=== PATIENT | female | born 1965 | race Caucasian/White ===

== ENCOUNTER 2020-05-18 14:26 | Outpatient (REF) | payer BC, SELFPAY ==
--- NOTE | 2020-05-18 14:34 | MM_ITS ---
EXAMINATION: MM SCREENING DIGITAL BREAST TOMOSYNTHESIS, BILATERAL CLINICAL INFORMATION: Screening. Asymptomatic. The lifetime risk of breast cancer based on the Tyrer-Cuzick Model is 9%. COMPARISON: Mammography: 02/25/2019, 10/30/2017, 10/10/2016 TECHNIQUE: Digital mammography is performed in craniocaudal and mediolateral oblique views along with computer-aided detection (CAD). Digital breast tomosynthesis is performed in implant-displaced craniocaudal and implant-displaced mediolateral oblique views along with computer-aided detection (CAD). Synthesized 2D images are generated from the tomosynthesis. FINDINGS: The breasts are heterogeneously dense, which may obscure small masses (ACR BI-RADS breast composition Category c). There are no significant masses, abnormal calcifications, or other abnormalities. Implant contours are smooth and similar to prior studies. There are no significant changes. No developing density. MM/MM tomosynthesis screen imp BI IMPRESSION: No mammographic evidence of malignancy. ASSESSMENT: BI-RADS 1: Negative RECOMMENDATION: Routine annual mammography screening. This patient's information was entered into a reminder system with a target due date for their next mammogram.
== END 2020-05-18 14:27 | disposition home or self-care (01) ==
LOC: HO.MAMMO 14:26
PROVIDERS: Visit Provider Family Medicine
DX: Z12.31 Encounter for screening mammogram for malignant neoplasm of breast (principal)
CPT/HCPCS: 77063; 77067

== ENCOUNTER 2021-08-23 13:10 | Outpatient (REF) | payer BC, SELFPAY ==
--- NOTE | ~2021-08-23 | MM_ITS ---
EXAMINATION: MM SCREENING DIGITAL BREAST TOMOSYNTHESIS, BILATERAL CLINICAL INFORMATION: Screening. Asymptomatic. The lifetime risk of breast cancer based on the Tyrer-Cuzick Model is 10%. COMPARISON: Mammography: 05/18/2020, 02/25/2019, 10/30/2017 TECHNIQUE: Digital mammography is performed in craniocaudal and mediolateral oblique views along with computer-aided detection (CAD). Digital breast tomosynthesis is performed in implant-displaced craniocaudal and implant-displaced mediolateral oblique views along with computer-aided detection (CAD). Synthesized 2D images are generated from the tomosynthesis. FINDINGS: The breasts are heterogeneously dense, which may obscure small masses (ACR BI-RADS breast composition Category c). There are no significant masses, abnormal calcifications, or other abnormalities. Parenchymal pattern is similar to prior studies. The implant contours are smooth and similar to prior studies. There are no significant changes. MM/MM tomosynthesis screen imp BI IMPRESSION: No mammographic evidence of malignancy. ASSESSMENT: BI-RADS 1: Negative RECOMMENDATION: Routine annual mammography screening. This patient's information was entered into a reminder system with a target due date for their next mammogram.
== END 2021-08-23 13:11 | disposition home or self-care (01) ==
LOC: HO.MAMMO 13:10
PROVIDERS: PCP Family Medicine; Visit Provider Family Medicine
DX: Z12.31 Encounter for screening mammogram for malignant neoplasm of breast (principal)
CPT/HCPCS: 77063; 77067

== ENCOUNTER 2022-09-14 13:59 | Outpatient (REF) | payer BC, SELFPAY ==
--- NOTE | ~2022-09-14 | MM_ITS ---
EXAMINATION: MM SCREENING DIGITAL BREAST TOMOSYNTHESIS, BILATERAL CLINICAL INFORMATION: Screening. Asymptomatic. The lifetime risk of breast cancer based on the Tyrer-Cuzick Model is 7%. COMPARISON: Mammography: 08/23/2021, 05/18/2020, 02/25/2019 TECHNIQUE: Digital mammography is performed in craniocaudal and mediolateral oblique views along with computer-aided detection (CAD). Digital breast tomosynthesis is performed in implant-displaced craniocaudal and implant-displaced mediolateral oblique views along with computer-aided detection (CAD). Synthesized 2D images are generated from the tomosynthesis. FINDINGS: The breasts are heterogeneously dense, which may obscure small masses (ACR BI-RADS breast composition Category c). The implant contours are smooth and similar to prior exams. Breast tissue composition borders on average fibroglandular. There are no significant masses, abnormal calcifications, or other abnormalities. No architectural abnormality or developing density. The axilla are unremarkable. Skin contours. MM/MM tomosynthesis screen imp BI IMPRESSION: No mammographic evidence of malignancy. ASSESSMENT: BI-RADS 1: Negative RECOMMENDATION: Routine annual mammography screening. This patient's information was entered into a reminder system with a target due date for their next mammogram.
== END 2022-09-14 14:00 | disposition home or self-care (01) ==
LOC: HO.MAMMO 13:59
PROVIDERS: Visit Provider Family Medicine
DX: Z12.31 Encounter for screening mammogram for malignant neoplasm of breast (principal)
CPT/HCPCS: 77063; 77067

== ENCOUNTER 2023-12-19 14:18 | Outpatient (REF) | payer OTHER, SELFPAY ==
--- NOTE | ~2023-12-19 | MM_ITS ---
EXAMINATION: MM SCREENING DIGITAL BREAST TOMOSYNTHESIS, BILATERAL WITH BREAST IMPLANTS CLINICAL INFORMATION: Screening. Asymptomatic. COMPARISON: Mammography: This study is compared with prior mammograms dating back to 2019. TECHNIQUE: Digital mammography is performed in craniocaudal and mediolateral oblique views along with computer-aided detection (CAD). Digital breast tomosynthesis is performed in implant-displaced craniocaudal and implant-displaced mediolateral oblique views along with computer-aided detection (CAD). Synthesized 2D images are generated from the tomosynthesis. FINDINGS: There are scattered areas of fibroglandular density (ACR BI-RADS breast composition Category b). There are bilateral, mammographically intact, retropectoral saline breast implants. There are no significant masses, abnormal calcifications, or other abnormalities. MM/MM tomosynthesis screen imp BI IMPRESSION: There are no significant changes from prior study. ASSESSMENT: BI-RADS BI-RADS 1 - Negative RECOMMENDATION: Routine annual mammography screening. 1 year F/U This patient's information was entered into a reminder system with a target due date for their next mammogram.
== END 2023-12-19 14:19 | disposition home or self-care (01) ==
LOC: HO.MAMMO 14:18
PROVIDERS: PCP Family Medicine; Visit Provider Family Medicine
DX: Z12.31 Encounter for screening mammogram for malignant neoplasm of breast (principal)
CPT/HCPCS: 77063; 77067

== ENCOUNTER → 2023-12-19 14:30 | Outpatient (BNV) | payer OTHER, SELFPAY | PROVIDERS: PCP Family Medicine; Visit Provider Radiology Diagnostic Radiology | DX: Z12.31 Encounter for screening mammogram for malignant neoplasm of breast (principal) | CPT/HCPCS: 77063; 77067 ==

== ENCOUNTER 2024-08-08 11:23 | Emergency (ER) | payer OTHER, SELFPAY ==
--- NOTE | ~2024-08-08 | CT_ITS ---
CLINICAL HISTORY: LLQ pain CT abdomen and pelvis with contrast Comparison: None Findings: No consolidation of the imaged lung bases. No CT findings of rupture of either imaged implant. Diffuse steatotic change of the liver. Gallbladder and pancreas are unremarkable for CT. The adrenal glands are normal. The spleen is nonenlarged. No hydronephrosis. Likely filtered contrast in the left renal pelvis. Filtered contrast in both renal collecting systems could obscure small stones. Nonenlarged lymphadenopathy. No free intraperitoneal air. No drainable abscess by CT. No small bowel obstruction. Wall thickening of the large intestine includes transverse colon, splenic flexure, and descending colon. Adjacent stranding concerning for acute colitis. The appendix is not definitively seen. The uterus is anteverted. Moderate wall thickening of the urinary bladder is nonspecific. No adnexal soft tissue mass by CT. Mild free fluid is in the pelvis including inferior in the sigmoid colon. Pelvis deformities appear old chronic including imaged pubic rami. Degenerative changes of the hips, SI joints, and spine; with multifocal facet arthropathy. Transitional vertebral anatomy is noted at the lumbosacral junction. Mild thoracic vertebral height losses appear old chronic in the [id number]. IMPRESSION: Acute colitis including splenic flexure and descending colon. This document has been electronically signed by: Josiah Nieto MD on 08/08/2024 23:23:51
[2024-08-08 11:49] VITALS: BP 143/92; PULSE 81; RESP 16; TEMP 36.8; O2SAT 98
--- NOTE | 2024-08-08 11:49 | ED_ITS ---
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 Patient reports a history of diverticulitis and reports this feels similar. She reports that she started with left lower quadrant abdominal pain about 2-3 weeks ago Since yesterday she was had left-sided upper abdominal pain and today she had bright red blood bowel movements Her she denies any fevers or chills. She states that this feels quite similar to her previous flares of diverticulitis however she was never had bloody stool with him in the past. She is not on any blood thinners Patient reports that she believes she had a flare last month which she self- treated with left over antibiotics Related Data Previous Rx's ?Medication ?Instructions ?Recorded amoxicillin 875 mg-potassium 1 tab PO Q12H #14 tabs 08/09/24 clavulanate 125 mg tablet ondansetron 4 mg disintegrating 4 mg PO Q8H PRN nausea and 08/09/24 tablet vomiting #20 tabs Allergies Allergy/AdvReac Type Severity Reaction Status Date / Time No Known Allergies Allergy Unverified 08/08/24 11:55 Review of Systems 2 Constitutional: Constitutional: Denies body ache(s), Denies chills and Denies fever(s) Respiratory: Respiratory: Denies cough Gastrointestinal: Gastrointestinal: Reports abdominal pain, Reports hematochezia, Reports diarrhea, Reports loose stools and Reports nausea Musculoskeletal: Musculoskeletal: Denies back pain Integumentary/Breasts: Skin/Breast: Denies rash Psychiatric: Psychiatric: Denies anxiety PMFSH Social History Social History Alcohol intake: current Alcohol intake frequency: 0-2 drinks per day Alcohol type: other Physical Exam ED Vital Signs: Vital Signs - 24 hr 08/08/24 11:49 08/09/24 00:53 Temperature 98.2 F 98.5 F Pulse Rate 81 84 Respiratory Rate 16 16 Blood Pressure 143/92 H 128/76 Pulse Oximetry 98 97 Oxygen Delivery Method Room Air Room Air BMI result Body Mass Index 30.0 Const General: healthy appearing, comfortable, no acute distress, alert and awake Nutritional Appearance: well nourished Orientation/consciousness: patient oriented x3 HENMT Head: Yes normocephalic and Yes atraumatic Eyes Eyelids: Yes eyelids normal Conjunctivae: conjunctivae normal Sclerae: sclerae normal Corneas: corneas normal Pupils: Equal, round and reactive pupils present EOM: EOMs intact bilaterally Neck Neck: Yes full ROM Resp Effort & Inspection: normal respiratory effort, able to speak in complete sentences and not labored GI Inspection: No distended Palpation (GI): Soft to palpation, not firm, Tenderness to palpation present (GI) in the LLQ and in the LUQ, Guarding due to palpation present (GI) and not rigid Auscultation: normoactive bowel sounds Skin General skin exam: elasticity normal Neuro General: patient oriented x3 Cranial nerves: Yes Equal, round and reactive pupils present and Yes Bilaterally intact EOM present Cognition (Neuro): normal cognition Extrem Other: Moving all extremities well without any obvious deformities Course Course Course Narrative: This is a rapid medical exam performed by Kaylin Sexton NP: Additional HPI, ROS, PE not included below will be deferred to primary provider. Patient is a 59-year-old female with history of diverticulitis presenting to the ED with complaint of upper abdominal pain since last night and now having bright red rectal bleeding. Reports lower abd pain for the past 2 weeks. Plan: labs, UA Medications Administered Discontinued Medications Generic Name Dose Route Start Last Admin Trade Name Freq PRN Reason Stop Dose Admin Acetaminophen 650 mg 08/08/24 20:11 08/08/24 20:21 Acetaminophen 325 Mg Tablet PO 08/08/24 20:12 650 mg ONCE ONE Administration Amoxicillin/Clavulanate Potassium 875 mg 08/09/24 00:26 08/09/24 00:34 Amoxicillin/Potassium Clav 875 Mg Tablet PO 08/09/24 00:27 875 mg ONCE ONE Administration Sodium Chloride 1,000 mls @ 999 mls/hr 08/08/24 22:45 08/09/24 00:06 Ns IV 08/08/24 23:45 Infused .Q1H1M MILIND Infusion Iohexol 85 ml 08/08/24 23:03 08/08/24 23:04 Iohexol 350 Mg/Ml 100 Ml Infus..Btl IV 08/08/24 23:04 85 ml ONCE ONE Administration Morphine Sulfate 4 mg 08/08/24 22:41 08/08/24 23:05 Morphine Sulfate 4 Mg/Ml Cartridge IVPUSH 08/08/24 22:42 4 mg ONCE ONE Administration Protocol Ondansetron HCl 4 mg 08/08/24 22:41 08/08/24 23:05 Ondansetron Hcl 4 Mg/2 Ml Vial IVPUSH 08/08/24 22:42 4 mg ONCE ONE Administration Medical Decision Making Medical Decision Making [facility] Narrative: 59-year-old female with a long history of diverticulitis presents for evaluation abdominal pain and bloody stool. She is quite tender in the left lower quadrant with guarding. She was a slight leukocytosis consistent with diverticulitis. Given her significant guarding we will get a CT scan of the abdomen pelvis to evaluate for abscess versus perforation. The patient's vital signs are stable, she was not meet sepsis criteria Differential Diagnosis Differential Diagnoses: The differential diagnosis associated with the presentation includes Abdominal pain Colitis Diverticulitis Diverticular perforation Bowel obstruction Admission/Observation Consideration of admission/observation: Escalation of care including admission/observation considered Lab Data [facility] Lab Attestation statement: I reviewed the patient's lab results. Leukocytosis to 13.5 likely related to an infectious diarrhea. No significant anemia. Normal platelet count. No electrolyte abnormalities 08/08/24 18:59 08/08/24 18:59 Labs: Lab Results 08/08/24 08/08/24 08/08/24 Range/Units 12:12 12:18 18:59 WBC 11.2 H 13.5 H (4.8-10.8) X10*3/uL RBC 4.41 4.53 (4.20-5.50) X10*6/uL Hgb 14.0 14.7 (12.0-16.0) g/dl Hct 41.2 41.8 (37.0-47.0) % MCV 93.4 92.3 (80.0-98.0) fL MCH 31.7 32.5 (27.0-33.0) pg MCHC 34.0 35.2 H (31.0-35.0) g/dl RDW 12.2 12.4 (11.0-16.0) % Plt Count 265 278 (160-400) X10*3/uL MPV 10.2 10.0 (9.4-12.3) fL Immature Gran % (Auto) Cancelled 0.4 Neut % (Auto) Cancelled 80.1 H Lymph % (Auto) Cancelled 12.0 L [place] % (Auto) Cancelled 7.0 Eos % (Auto) Cancelled 0.2 Baso % (Auto) Cancelled 0.3 Lymph # (Auto) Cancelled 1.6 [place] # (Auto) Cancelled 0.9 Eos # (Auto) Cancelled 0.0 Baso # (Auto) Cancelled 0.0 Abs Immat Gran (auto) Cancelled 0.06 H Absolute Neuts (auto) Cancelled 10.8 H Absolute Nucleated RBC 0.000 0.000 (0.0-0.012) X10*3/uL Nucleated RBC % (auto) 0.0 0.0 (0.0-0.2) /100WBC Neutrophils % (Manual) 75 H (45-73) % Band Neutrophils % 1 L (3-5) % Lymphocytes % (Manual) 15 L (20-40) % Atypical Lymphs % (Man) 1 (0-6) % Monocytes % (Manual) 8 (2-11) % Abs Neuts (Manual) 8.5 H (2.0-8.3) X10*3/uL Lymphocytes # (Manual) 1.7 (1.2-4.9) X10*3/uL Atyp Lymphs # (Manual) 0.1 x10*3/uL Monocytes # (Manual) 0.9 (0.1-1.2) X10*3/uL Toxic Vacuolation PRESENT Platelet Estimate NORMAL (NORMAL) Plt Morphology Comment NORMAL RBC Morphology NORMAL Sodium 139 140 (135-145) mmol/L Potassium 4.1 4.0 (3.3-5.1) mmol/L Chloride 105 104 (96-108) mmol/L Carbon Dioxide 25 24 (22-29) mmol/L Anion Gap 13 16 (12-20) BUN 13 11 (9-16) mg/dL Creatinine 0.59 0.62 (0.5-1.4) mg/dL Estim Creat Clear Calc 100.8 95.9 Estimated GFR > 60 > 60 Random Glucose 122 H 110 (60-115) mg/dL Calcium 9.6 9.7 (8.4-10.2) mg/dL Magnesium 1.9 (1.6-2.6) mg/dL Total Bilirubin 0.9 1.2 H (0.0-1.0) mg/dL AST 41 H 38 H (5-31) U/L ALT 75 H 72 H (0-31) U/L Alkaline Phosphatase 81 84 (39-117) U/L Total Protein 7.6 7.9 (6.5-8.0) g/dL Albumin 4.4 4.5 (3.5-5.0) g/dL Lipase 16 (8-78) U/L Urine Color Yellow Urine Appearance Clear Urine pH 5.5 (5.0-9.0) Ur Specific Cade 1.025 (1.005-1.025) Urine Protein Negative (Neg-Trace) mg/dL Urine Glucose (UA) Negative (Negative) mg/dL Urine Ketones Trace (Negative) mg/dL Urine Blood Negative (Negative) Urine Nitrite Negative (Negative) Ur Leukocyte Esterase Negative (Negative) Radiology Impression Discussion of test interpretation with radiology: I have reviewed the radiologist's reading. Radiologist Impression: Findings: No consolidation of the imaged lung bases. No CT findings of rupture of either imaged implant. Diffuse steatotic change of the liver. Gallbladder and pancreas are unremarkable for CT. The adrenal glands are normal. The spleen is nonenlarged. No hydronephrosis. Likely filtered contrast in the left renal pelvis. Filtered contrast in both renal collecting systems could obscure small stones. Nonenlarged lymphadenopathy. No free intraperitoneal air. No drainable abscess by CT. No small bowel obstruction. Wall thickening of the large intestine includes transverse colon, splenic flexure, and descending colon. Adjacent stranding concerning for acute colitis. The appendix is not definitively seen. The uterus is anteverted. Moderate wall thickening of the urinary bladder is nonspecific. No adnexal soft tissue mass by CT. Mild free fluid is in the pelvis including inferior in the sigmoid colon. Pelvis deformities appear old chronic including imaged pubic rami. Degenerative changes of the hips, SI joints, and spine; with multifocal facet arthropathy. Transitional vertebral anatomy is noted at the lumbosacral junction. Mild thoracic vertebral height losses appear old chronic in the [id number]. IMPRESSION: Acute colitis including splenic flexure and descending colon. This document has been electronically signed by: Josiah Nieto MD on 08/08/2024 23:23:51 Discharge Plan Discharge Clinical Impression: Colitis Patient Disposition: Home, Self-Care Instructions: Colitis (ED) Additional Instructions: You have colitis on your CT scan. You should use a liquid diet for the next 2 days Advance as tolerated Take the Augmentin twice daily for 1 week. Use Zofran as needed for nausea and vomiting Call your GI doctor tomorrow to schedule your follow-up appointment Return for new or worsening symptoms Prescriptions: New ondansetron 4 mg tablet,disintegrating 4 mg PO Q8H PRN (Reason: nausea and vomiting) Qty: 20 0RF amoxicillin-pot clavulanate 875-125 mg tablet 1 tab PO Q12H Qty: 14 0RF Interventions: ED Discharge Assessment Last Done: 08/09/24 00:53 Discharge Date/Time: 08/09/24 00:55 Print Language: Romanian
[2024-08-08 12:18] LABS: Hematocrit 41.2 % (37.0-47.0); Mean Corpuscular Hemoglobin 31.7 pg (27.0-33.0); Mean Corpuscular Volume 93.4 fL (80.0-98.0); Mean Platelet Volume 10.2 fL (9.4-12.3); Platelet Count 265 X10*3/uL (160-400); Red Blood Count 4.41 X10*6/uL (4.20-5.50); Red Cell Distribution Width 12.2 % (11.0-16.0)
[2024-08-08 12:25] LABS: WBC ABN SCTR FOR CBC 1; White Blood Count 11.2 X10*3/uL (4.8-10.8)
[2024-08-08 12:28] LABS: Appearance Urine Clear; Color Urine Yellow; Glucose Urine UA Negative (Negative); Leukocyte Esterase Urine Negative (Negative); Nitrite Urine Negative (Negative); PH 5.5 (5.0-9.0); Specific Gravity - Urine 1.025 (1.005-1.025); Urine Blood Negative (Negative); Urine Ketones Trace mg/dL (Negative); Urine Protein Negative (Neg-Trace)
[2024-08-08 12:34] LABS: Alanine Aminotransferase 75 U/L (0-31); Albumin Level 4.4 g/dL (3.5-5.0); Alkaline Phosphatase 81 U/L (39-117); Anion Gap 13 (12-20); Aspartate Amino Transferase 41 U/L (5-31); Bilirubin Total 0.9 mg/dL (0.0-1.0); Blood Urea Nitrogen 13 mg/dL (9-16); Calcium 9.6 mg/dL (8.4-10.2); Carbon Dioxide 25 mmol/L (22-29); Chloride 105 mmol/L (96-108); Creatinine Clr Calc Pharmacy 100.8; Estimated Glomerular Filt Rate > 60; Glucose Random 122 mg/dL (60-115); Lipase 16 U/L (8-78); Magnesium 1.9 mg/dL (1.6-2.6); Potassium 4.1 mmol/L (3.3-5.1); Sodium 139 mmol/L (135-145); Total Protein 7.6 g/dL (6.5-8.0)
[2024-08-08 12:45] LABS: Atypical Lymph Absolute Manual 0.1 x10*3/uL; Atypical Lymphs Percent Manual 1 % (0-6); Band Neutrophils Percent 1 % (3-5); Lymphocytes Absolute Manual 1.7 X10*3/uL (1.2-4.9); Lymphocytes Percent Manual 15 % (20-40); Monocytes Absolute Manual 0.9 X10*3/uL (0.1-1.2); Monocytes Percent Manual 8 % (2-11); Neutrophils Absolute Manual 8.5 X10*3/uL (2.0-8.3); Neutrophils Percent Manual 75 % (45-73)
[2024-08-08 12:46] LABS: Platelet Estimate NORMAL (NORMAL); Platelet Morphology Comment NORMAL; RBC Morphology NORMAL; Toxic Vacuolation PRESENT
--- OUTSIDE RECORDS SUMMARY | 2024-08-08 13:14 | XMS_ITS ---
Author Organization Formerly [facility], [address] [place] [address] Care Team Providers Care Wheel Truer Name Role Phone Rema Augustin Primary Care Provider [phone] Adriana Beckham Unavailable [phone] REASON FOR VISIT adderall refill Medications Medication SIG (Take, Route, Frequency, Duration) Notes Start Date End Date Status Adderall XR 30 MG 1 cap(s) orally once a day (in the morning) for 90 days MORNING. DX: ADHD; PLEASE ALLOW SUBSTITUTION 07/04/2024 Active Encounters Encounter Location Date Provider Diagnosis [facility] [address] [place] [id number] 07/03/2024 Rema Augustin Attention-deficit hyperactivity disorder, unspecified type F90.9 Assessments Encounter Date Diagnosis (ICD Code) Assessment Notes Treatment Notes Treatment Clinical Notes Section Notes 07/03/2024 Attention-deficit hyperactivity disorder, unspecified type (ICD-10 - F90.9) Plan Of Treatment Medication Medication Name Sig Start Date Stop Date Notes Adderall XR 30 MG 1 cap(s) orally once a day (in the morning) for 90 days 07/04/2024 MORNING. DX: ADHD; PLEASE ALLOW SUBSTITUTION Next Appt Details Provider Name:Adriana Beckham, 10/16/2024 11:00:00 AM, [address] [place], [address], Progress Notes * DINORA LEYVADOB:1964 (59 yo F)Acc No.[id number]:07/03/2024 Patient:DINORA WEEKS :1965???Age:59 Y???Sex:Female Address:[place] [address] [place] [address] [place], [id number] * Refills? Refill Adderall XR Capsule Extended Release 24 Hour, 30 MG, orally, 90 Capsule, 1 cap(s), once a day (in the morning), 90 days, Refills=0 * true * Date:? Generated for Shana fuentes/Bhavik/Alanransmitting on:?08/08/2024 01:14 PM EST
[2024-08-08 19:03] LABS: MANUAL DIFF FLAG NO
[2024-08-08 19:05] LABS: Basophils Percent Auto 0.3 % (0-2); Eosinophils Percent Auto 0.2 % (0-4); Hematocrit 41.8 % (37.0-47.0); Hemoglobin 14.7 g/dl (12.0-16.0); Imm Gran Abs Auto 0.06 X10*3/uL (0.00-0.03); Imm Gran Pct Auto 0.4 % (0.0-0.4); Lymphocytes Absolute Auto 1.6 X10*3/uL (1.2-4.9); Mean Corpuscular HGB Conc 35.2 g/dl (31.0-35.0); Mean Corpuscular Hemoglobin 32.5 pg (27.0-33.0); Mean Corpuscular Volume 92.3 fL (80.0-98.0); Monocytes Absolute Auto 0.9 X10*3/uL (0.1-1.2); Neutrophils Absolute Auto 10.8 x10*3/uL (2.0-8.3); Neutrophils Percent Auto 80.1 % (45-73); Platelet Count 278 X10*3/uL (160-400); Red Blood Count 4.53 X10*6/uL (4.20-5.50); Red Cell Distribution Width 12.4 % (11.0-16.0); White Blood Count 13.5 X10*3/uL (4.8-10.8)
[2024-08-08 19:24] LABS: Alanine Aminotransferase 72 U/L (0-31); Albumin Level 4.5 g/dL (3.5-5.0); Alkaline Phosphatase 84 U/L (39-117); Anion Gap 16 (12-20); Aspartate Amino Transferase 38 U/L (5-31); Bilirubin Total 1.2 mg/dL (0.0-1.0); Blood Urea Nitrogen 11 mg/dL (9-16); Calcium 9.7 mg/dL (8.4-10.2); Carbon Dioxide 24 mmol/L (22-29); Chloride 104 mmol/L (96-108); Creatinine Clr Calc Pharmacy 95.9; Estimated Glomerular Filt Rate > 60; Glucose Random 110 mg/dL (60-115); Sodium 140 mmol/L (135-145); Total Protein 7.9 g/dL (6.5-8.0)
[2024-08-08] MEDS: Acetaminophen 325 MG TABLET 650 MG PO (20:21)
[2024-08-08] MEDS: iohexoL 350 MG/ML 100 ML INFUS..BTL 85 ML IV (23:04)
[2024-08-08] MEDS: Morphine Sulfate 4 MG/ML CARTRIDGE IVPUSH (23:05)
[2024-08-08] MEDS: ondansetron HCL 4 MG/2 ML VIAL IVPUSH (23:05)
[2024-08-08] MEDS: 0.9 % Sodium Chloride 1,000 ML 999 ML IV (23:05)
[2024-08-09] MEDS: Amoxicillin/Potassium Clav 875 MG TABLET PO (00:34)
[2024-08-09 00:53] VITALS: BP 128/76; PULSE 84; RESP 16; TEMP 36.9; O2SAT 97
== END 2024-08-09 00:55 | disposition home or self-care (01) ==
PROVIDERS: Registered Nurse Emergency; Emergency Provider Emergency Medicine Emergency Medical Services; PCP Family Medicine
DX: K52.9 Noninfective gastroenteritis and colitis, unspecified (principal); R10.2 Pelvic and perineal pain; R11.0 Nausea; Z79.899 Other long term (current) drug therapy
CPT/HCPCS: 36415; 74177; 80053; 81003; 83690; 83735; 85007; 85025; 85027; 96361; 96374; 96375; 99284; 99285; J2270; J2405; Q9967

== ENCOUNTER → 2024-08-08 22:41 | Outpatient (BNV) | payer OTHER, SELFPAY | PROVIDERS: PCP Family Medicine; Visit Provider Radiology Neuroradiology | DX: R10.32 Left lower quadrant pain (principal) | CPT/HCPCS: 74177 ==

== ENCOUNTER 2024-12-11 16:20 | Outpatient (REF) | payer OTHER, SELFPAY ==
[2024-12-11 16:38] LABS: MANUAL DIFF FLAG NO
[2024-12-11 17:08] LABS: Basophils Percent Auto 0.6 % (0-2); Eosinophils Absolute Auto 0.1 X10*3/uL (0.0-0.4); Eosinophils Percent Auto 0.7 % (0-4); Hematocrit 40.6 % (37.0-47.0); Hemoglobin 13.4 g/dl (12.0-16.0); Imm Gran Abs Auto 0.03 X10*3/uL (0.00-0.03); Imm Gran Pct Auto 0.4 % (0.0-0.4); Lymphocytes Percent Auto 28.5 % (20-40); Mean Corpuscular Hemoglobin 31.1 pg (27.0-33.0); Mean Corpuscular Volume 94.2 fL (80.0-98.0); Mean Platelet Volume 10.7 fL (9.4-12.3); Monocytes Absolute Auto 0.5 X10*3/uL (0.1-1.2); Monocytes Percent Auto 7.5 % (2-11); Neutrophils Absolute Auto 4.4 x10*3/uL (2.0-8.3); Neutrophils Percent Auto 62.3 % (45-73); Platelet Count 273 X10*3/uL (160-400); Red Blood Count 4.31 X10*6/uL (4.20-5.50); Red Cell Distribution Width 12.2 % (11.0-16.0); White Blood Count 7.1 X10*3/uL (4.8-10.8)
[2024-12-11 17:29] LABS: C Reactive Protein 0.24 mg/dL (< or = 0.50)
[2024-12-11 17:50] LABS: Erythrocyte Sedimentation Rate 17 MM/HR (0-20)
[2024-12-12 22:39] LABS: Immunoglobulin A 247 mg/dL (47-310); Transglutaminase IgA <1.0 U/mL
== END 2024-12-11 16:21 | disposition home or self-care (01) ==
LOC: HO.LAB 16:20
PROVIDERS: PCP Family Medicine; Visit Provider Internal Medicine
DX: R19.7 Diarrhea, unspecified (principal); Z87.19 Personal history of other diseases of the digestive system; R19.4 Change in bowel habit
CPT/HCPCS: 36415; 82784; 85025; 85652; 86140; 86364

== ENCOUNTER 2024-12-12 14:07 | Outpatient (REF) | payer OTHER, SELFPAY ==
--- OUTSIDE RECORDS SUMMARY | 2024-11-12 09:30 | XMS_ITS ---
Author Organization [facility] tj Address [address] [place] [address] Care Team Providers Care Cylinder Machine Operator Pulp Drier Name Role Phone Rema Augustin Primary Care Provider [phone] Adriana Beckham Unavailable [phone] Huy Chávez Unavailable [phone] Allergies No Known Allergies Results Component Value [...] Zulema Bone, [address], [place], Phone - [phone], Director - [facility] Notes/Report: Clinical Information:[id number] DIAGNOSIS: NEGATIVE FOR IN TRAEPITHELIAL LESION OR [...] due for pcv20 and covid (checked [facility] [place]) declines, HEARING SCREEN: R Refer, L Pass, ADHD = 23 Medications Medication SIG (Take, Route, Frequency, Duration) Notes Start Date End Date Status Adderall XR 30 MG 1 cap(s) orally once a day (in the morning) for 90 days MORNING. DX: ADHD; PLEASE ALLOW SUBSTITUTION 10/09/2024 Active Vitamin D3 1.25 MG (38437 UT) 1 capsule Orally once a week [...] 11/12/2024 Encounters Encounter Location Date Provider Diagnosis Formerly [facility] [address] [place] [address] 11/12/2024 Huy Chávez Adult physical NORMAL Z00.00 [...] PAP SMEAR (ICD-10 - Z01.419) 11/12/2024 Other [facility] nce flow sheet reveiwed and updated Plan Of Treatment Medication Medication Name Sig Start Date Stop Date Notes Vitamin D3 1.25 MG (16087 UT) 1 capsule Orally once a week [...] 11:00:00 AM, [address] , [place], [address], Provider Name:Adriana Amezquita Beckham, 11/19/2025 10:30:00 AM, [address] [place], [address], Procedure Notes * Category Sub-Category Detail Notes Hearing Screen Completed OAE Refer R ear, OAE Pass L ear Progress Notes * DINORA ABBASIDOB:1964 (59 yo F)Acc No.[id number]:11/12/2024 Progress Notes Patient: DINORA BOB Appointment Provider: Emilia Chávez NP :1965 A ge:59 Y S ex:Female Date:11/12/2024 Address[place] [place], [place] Pcp:Rema Augustin Subjective: * Chief Complaints: * 1 . CPE- fu. 2. PHQ9: 4. 3. PAP: Due. 4. MAMMO: Last 09/14/22- due. 5. COLONOSCOPY: last 02/24/16- f/u in 10 yrs (2025). 6. HCP: Francisco Abbasi (). 7. IMMS: due for pcv20 and covid (checked [facility] [place]) declines. 8. HEARING SCREEN: R Refer, L [...] due to an infection. 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 Marital Status: . Children: 2. Occupation: [employer] Advent: none. Exercise: not much, pt likes to [...] unspecified Start Vitamin D3 Capsule, 1.25 MG (35889 UT), 1 capsule, Orally, once a week, [...] * Images: Billing Information: * Visit Code: 38326 Preventive Care Est Pt. Age 40-64. * Procedure Codes: 19984 PHQ9 or ADHD scale. Care Plan Details* * Sign off status: Completed true * Appointment Provider: Emilia Chávez NP Date: 0 11/12/2024 Generated for Shana fuentes/Bhavik/Ricardo on: 0 12/12/2024 05:04 PM EDT History and Physical Notes * [...]
[2024-12-12 15:43] LABS: CDiff Gene PCR NEGATIVE (Negative)
[2024-12-12 16:21] LABS: Adenovirus F 40/41 Not Detected (Not Detect.); Astrovirus Not Detected (Not Detect.); Campylobacter Not Detected (Not Detect.); Cryptosporidium Not Detected (Not Detect.); Cyclospora cayetanensis Not Detected (Not Detect.); E. coli EAEC Not Detected (Not Detect.); E. coli EPEC Not Detected (Not Detect.); E. coli ETEC Not Detected (Not Detect.); E. coli STEC Not Detected (Not Detect.); Entamoeba histolytica Not Detected (Not Detect.); Giardia lamblia Not Detected (Not Detect.); Norovirus GI/GII Not Detected (Not Detect.); Plesiomonas shigelloides Not Detected (Not Detect.); Rotavirus A Not Detected (Not Detect.); Salmonella Not Detected (Not Detect.); Sapovirus Not Detected (Not Detect.); Shigella sp./EIEC Not Detected (Not Detect.); Vibrio Not Detected (Not Detect.); Vibrio Cholerae Not Detected (Not Detect.); Yersinia enterocolitica Not Detected (Not Detect.)
[2024-12-12 17:37] LABS: Leukocytes Stool Qualitative NEGATIVE (NEGATIVE)
[2024-12-19 15:18] LABS: Calprotectin, Fecal 10 mcg/g
== END 2024-12-12 14:08 | disposition home or self-care (01) ==
LOC: HO.LNP 14:07
PROVIDERS: Visit Provider Internal Medicine
DX: R19.7 Diarrhea, unspecified (principal); Z87.19 Personal history of other diseases of the digestive system; R19.4 Change in bowel habit
CPT/HCPCS: 83993; 87493; 87507; 89055

== ENCOUNTER 2025-01-07 13:18 | Outpatient (REF) | payer OTHER, SELFPAY | END 2025-01-07 13:19 | disposition home or self-care (01) | LOC: HO.MAMMO 13:18 | PROVIDERS: PCP Family Medicine; Visit Provider Family Medicine | DX: Z12.31 Encounter for screening mammogram for malignant neoplasm of breast (principal) | CPT/HCPCS: 77063; 77067 ==

== ENCOUNTER → 2025-01-07 13:30 | Outpatient (BNV) | payer OTHER, SELFPAY | PROVIDERS: PCP Family Medicine; Visit Provider Internal Medicine | DX: Z12.31 Encounter for screening mammogram for malignant neoplasm of breast (principal) | CPT/HCPCS: 77063; 77067 ==

== ENCOUNTER 2025-01-10 09:19 | Day surgery (SDC) | payer OTHER, SELFPAY ==
--- OUTSIDE RECORDS SUMMARY | 2024-11-12 09:30 | XMS_ITS ---
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 Name Role Phone Rema Augustin Primary Care Provider Adriana Beckham Unavailable [phone] Huy Chávez Unavailable Allergies No Known Allergies Results Component Value Reference Range Notes TSH with reflex Reviewed date:11/13/2024 12:58:05 PM Interpretation: Performing Lab: Notes/Report: TSH 3.36 0.27-4.20 uIU/mL COMP MET PANEL Reviewed date:11/13/2024 12:56:39 PM Interpretation: Performing Lab: Notes/Report: SODIUM 136 133-146 mmol/L POTASSIUM 4.1 3.3-5.1 mmol/L CHLORIDE 100 96-108 mmol/L CO2 23 21-35 mmol/L BUN 17 6-19 mg/dL CREATININE 0.50 0.5-1.5 mg/dL GLUCOSE 93 70-99 mg/dL ALBUMIN 4.6 3.9-4.8 g/dL TOTAL PROTEIN 7.6 6.5-8.0 g/dL CALCIUM 9.6 8.4-10.3 mg/dL ALKALINE PHOSPHATASE 79 39-117 U/L TOTAL BILIRUBIN 0.3 0.0-1.2 mg/dL AST 21 0-37 U/L ALT 19 0-40 U/L EGFR 108 >59 mL/min/1.73m2 Estimated glomerular filtration rate calculated using the CKD-EPI refit equation. ANION GAP 17 10-20 mmol/L GLOBULIN 3.0 1-4.8 g/dL LIPID PANEL Reviewed date:11/19/2024 06:44:53 PM Interpretation: Performing Lab: Notes/Report: HDL 72 Interpretation <40 mg/dL: Low HDL cholesterol (major risk factor for CHD) Greater than or equal to 60 mg/dL: High HDL cholesterol ( negative risk factor for CHD) HDL - cholesterol is affected by a number of factors, e.g. smoking, excerise, hormones, sex and age. CHOLESTEROL 251 0-240 mg/dL TRIGLYCERIDES 71 30-160 mg/dL LDL 165 50-129 mg/dL LDL levels in terms of risk for coronary heart disease: <100 mg/dL: Optimal 100-129 mg/dL: Near or above optimal 130-159 mg/dL: Borderline high 160-189 mg/dL: High >190 mg/dL: Very High CARDIAC RISK RATIO 3.5 3.3-4.4 CBC AND DIFFERENTIAL Reviewed date:11/13/2024 12:56:46 PM Interpretation: Performing Lab: Notes/Report: WBC 6.49 4.00-11.00 K/uL RBC 4.35 4.00-5.20 M/uL HGB 13.7 12.0-16.0 g/dL HCT 40.9 36.0-46.0 % PLT 285 150-450 K/uL MCV 94.0 80.0-100.0 fL MCH 31.5 27.0-31.0 pg MCHC 33.5 32.0-36.0 g/dL RDW 12.3 11.5-14.5 % MPV 11.2 8.4-12.0 fL NRBC 0.00 0.00 /100 WBCs ABSOLUTE NRBC 0.00 0.00 K/uL DIFF METHOD Auto NEUTS 59.5 48.0-76.0 % LYMPHS 31.3 18.0-41.0 % MONOS 7.6 4.0-11.0 % EOS 0.8 0.0-5.0 % BASOS 0.6 0.0-1.5 % GRANULOCYTES, IMMATURE (%) 0.2 0.0-0.9 % ABSOLUTE NEUTS 3.87 1.92-7.60 K/uL ABSOLUTE LYMPHS 2.03 0.72-4.10 K/uL ABSOLUTE MONOS 0.49 0.16-1.10 K/uL ABSOLUTE EOS 0.05 0.00-0.50 K/uL ABSOLUTE BASOS 0.04 0.00-0.15 K/uL GRANULOCYTES, IMMATURE 0.01 0.00-0.09 K/uL Pap IGP, Aptima HPV, rfx 16/ 18,45- (AMHERST 25+)) Reviewed date:11/15/2024 09:15:58 AM Interpretation: Performing Lab:[facility] [place], [address], [address], [place], Phone - [phone], Director - [facility] Notes/Report: Clinical Information:[id number] DIAGNOSIS: NEGATIVE FOR IN TRAEPITHELIAL LESION OR MALIGNANCY. Specimen adequacy: Satisfact ory for evaluation. Clinician provided ICD10: Z0 1.419 Performed by: Emilia Landis ytologist (ASCP) . . Note: The Pap smear is a screening test designed to aid in the detection of premalignant and malignant conditions of the uterine cervix. It is not a diagnostic procedure and should not be used as the sole means of detecting cervical cancer. Both false-positive and false-negative reports do occur. . Test Methodology: This liquid based ThinPrep(R) pap test was screened with the use of an image guided system. HPV Aptima Negative Negative This nucleic acid amplification test detects fourteen high-risk HPV types (16,18,31,33,35,39,45,51,52,56 ,58,59,66,68) without differentiation. HPV Genotype Reflex Criteria not met, HPV Genotype not performed. REASON FOR VISIT CPE- fu, PHQ9: 4, PAP: Due, MAMMO: Last 09/14/22- due, COLONOSCOPY: last 02/24/16- f/u in 10 yrs (2025), HCP: Francisco Abbasi (), IMMS: due for pcv20 and covid (checked MIIS- [place]) declines, HEARING SCREEN: R Refer, L Pass, ADHD = 23 Medications Medication SIG (Take, Route, Frequency, Duration) Notes Start Date End Date Status Adderall XR 30 MG 1 cap(s) orally once a day (in the morning) for 90 days MORNING. DX: ADHD; PLEASE ALLOW SUBSTITUTION 10/09/2024 Active Vitamin D3 1.25 MG (61851 UT) 1 capsule Orally once a week for 70 days 11/12/2024 Active ProAir Digihaler 108 (90 Base) MCG/ACT 2 puff(s) inhaled 4 times a day PRN for 30 days PRN 09/26/2016 Active Adderall 20 MG 2 tabs orally once a day in PM for 90 days AFTERNOON. please allow substitution, DX: ADHD 08/09/2024 Active Social History Tobacco Use: Social History Observation Description Date Details (start date - stop date) Former Smoker NA - NA Smoking Smart Form: Question Answer Notes Are you a: former smoker How long has it been since you last smoked? 3-6 months Section Notes: 10-12 cigarettes per day - q uit around 2022 Vital Signs Temperature 97.4 degrees Fahrenheit 11/13/19 25 Blood pressure systolic 122 mm Hg 11/13/19 25 Blood pressure diastolic 80 mm Hg 025 Weight 168.6 lbs 11/12/2024 Oximetry 98 11/12/2024 Encounters Encounter Location Date Provider [facility] [address] [place] [address] 11/12/2024 Huy Chávez Adult physical NORMAL Z00.00 ; Encounter for screening for malignant neoplasm of cervix Z12.4 ; Hyperlipidemia, unspecified E78.5 ; Asthma unspecified, uncomplicated J45.909 ; Nicotine dependence, cigarettes, in remission F17.211 ; Fatty (change of) liver, not elsewhere classified K76.0 ; Fatigue R53.83 ; Hypothyroidism E03.9 ; Vitamin D deficiency, unspecified E55.9 ; Attention-deficit hyperactivity disorder, unspecified type F90.9 ; Anxiety (unspecified) F41.9 ; Allergic rhinitis, unspecified J30.9 ; Hearing loss, Conductive, unilateral, right ear, with unrestricted hearing on the contralateral side H90.11 ; Colitis NOS K52.9 and PAP SMEAR Z01.419 Assessments Encounter Date Diagnosis (ICD Code) Assessment Notes Treatment Notes Treatment Clinical Notes Section Notes 11/12/2024 Adult physical NORMAL (ICD-10 - Z00.00) Recommended to have regular check-ups with an eye doctor. Advised routine dental visits to support optimal oral health. Encouraged regular exercise and maintains a healthy lifestyle. Instructed to follow a well-balanced, nutritious diet. Labs ordered for further evaluation Pap collected today. We reviewed screening criteria and explained that follow-up recommendations will be based on cytopathology report per ASCCP guidelines. Patient will confirm mammogram status with the hospital. Colonoscopy is scheduled and will proceed as planned. Encourage scheduling a dental appointment. Discussed the benefits of regular eye exams 11/12/2024 Encounter for screening for malignant neoplasm of cervix (ICD-10 - Z12.4) Pap collected today.We reviewed screening criteria and explained that follow-up recommendations will be based on cytopathology report per ASCCP guidelines. 11/12/2024 Hyperlipidemia, unspecified (ICD-10 - E78.5) Ordered labs for further evaluation and monitoring. 11/12/2024 Asthma unspecified, uncomplicated (ICD-10 - J45.909) Ordered labs for further evaluation and monitoring. Vitamin D once a week 11/12/2024 Nicotine dependence, cigarettes, in remission (ICD-10 - F17.211) Encouragement for continued smoking cessation to reduce overall health risks. 11/12/2024 Fatty (change of) liver, not elsewhere classified (ICD-10 - K76.0) Currently stable, previous tests showed normal result Continue moderate alcohol consumption with awareness of potential health impacts. 11/12/2024 Fatigue (ICD-10 - R53.83) 11/12/2024 Hypothyroidism (ICD-10 - E03.9) Currently stable 11/12/2024 Vitamin D deficiency, unspecified (ICD-10 - E55.9) Will order Vitamin D once a week Ordered labs for further evaluation and monitoring. Recheck vitamin D levels and thyroid function (TSH with reflex) to assess current status and guide treatment. CBC with differential will be ordered. 11/12/2024 Attention-deficit hyperactivity disorder, unspecified type (ICD-10 - F90.9) Continue current Adderall regimen as it is well-tolerated without issues. 11/12/2024 Anxiety (unspecified) (ICD-10 - F41.9) Will order Vitamin D once a week Ordered labs for further evaluation and monitoring. 11/12/2024 Allergic rhinitis, unspecified (ICD-10 - J30.9) Continue managing allergy-induced asthma with Mucinex for postnasal drip. 11/12/2024 Hearing loss, Conductive, unilateral, right ear, with unrestricted hearing on the contralateral side (ICD-10 - H90.11) 11/12/2024 Colitis NOS (ICD-10 - K52.9) GI appointment scheduled for December 11. Continue using Metamucil gummies and probiotics as needed. 11/12/2024 PAP SMEAR (ICD-10 - Z01.419) 11/12/2024 Other [facility] nce flow sheet reveiwed and updated Plan Of Treatment Medication Medication Name Sig Start Date Stop Date Notes Vitamin D3 1.25 MG (11312 UT) 1 capsule Orally once a week for 70 days 11/12/2024 Treatment Notes Assessment Notes Adult physical NORMAL Recommended to have regular check-ups with an eye doctor. Advised routine dental visits to support optimal oral health. Encouraged regular exercise and maintains a healthy lifestyle. Instructed to follow a well-balanced, nutritious diet. Labs ordered for further evaluation Pap collected today. We reviewed screening criteria and explained that follow-up recommendations will be based on cytopathology report per ASCCP guidelines. Patient will confirm mammogram status with the hospital. Colonoscopy is scheduled and will proceed as planned. Encourage scheduling a dental appointment. Discussed the benefits of regular eye exams Encounter for screening for malignant neoplasm of cervix Pap collected today.We reviewed screenin g criteria and explained that follow-up recommendations will be based on cytopathology report per ASCCP guidelines. Hyperlipidemia, unspecified Ordered labs for further evaluation and monitoring. Asthma unspecified, uncomplicated Ordered labs for further evaluation and monitoring. Vitamin D once a week Nicotine dependence, cigaret jean paul, in remission Encouragement for continued smoking cessation to reduce overall health risks. Fatty (change of) liver, not elsewhere classified Currently stable, previous tests showed normal result Continue moderate alcohol consumption with awareness of potential health impacts. Hypothyroidism Currently stable Vitamin D deficiency, unspecified Will order Vitamin D once a week Ordered labs for further evaluation and monitoring. Recheck vitamin D levels and thyroid function (TSH with reflex) to assess current status and guide treatment. CBC with differential will be ordered. Attention-deficit hyperactiv ity disorder, unspecified type Continue current Adderall regimen as it is well-tolerated without issues. Anxiety (unspecified) Will order Vitamin D once a week Ordered labs for further evaluation and monitoring. Allergic rhinitis, unspecified Continue managing allergy-induced asthma with Mucinex for postnasal drip. Colitis NOS GI appointment sched uled for December 11. Continue using Metamucil gummies and probiotics as needed. Other Health maintenance f low sheet reveiwed and updated Pending Test Test Name Order Date Vitamin D 11/12/2024 Next Appt Details Follow Up: f/u 3m adhd HJF, Reason: Provider Name:Adriana Amezquita Beckham, 02/12/2025 11:00:00 AM, [address] , [place], [address], Provider Name:Adriana Amezquita Beckham, 11/19/2025 10:30:00 AM, [address] [place], [address], Procedure Notes * Category Sub-Category Detail Notes Hearing Screen Completed OAE Refer R ear, OAE Pass L ear Progress Notes * DINORA ABBASIDOB:1964 (59 yo F)Acc No.[id number]:11/12/2024 Progress Notes Patient: DINORA BOB Appointment Provider: Emilia Chávez NP :1965 A ge:59 Y S ex:Female Date:11/12/2024 Address:[address] [place], [place] Pcp:Rema Augustin Subjective: * Chief Complaints: * 1 . CPE- fu. 2. PHQ9: 4. 3. PAP: Due. 4. MAMMO: Last 09/14/22- due. 5. COLONOSCOPY: last 02/24/16- f/u in 10 yrs (2025). 6. HCP: Francisco Abbasi (). 7. IMMS: due for pcv20 and covid (checked [facility]- [place]) declines. 8. HEARING SCREEN: R Refer, L Pass. 9. ADHD = 23. * HPI: I nterim History: Carlita, 59-year-old female presents today for her annual physical examination. - Colitis and Gastrointestinal Symptoms: Patient reports a history of colitis and recently visited the ER. She has an upcoming GI appointment scheduled for December 11. Currently, she experiences mild diarrhea but no pain or bleeding. She occasionally takes Metamucil gummies and probiotics, which seem to help. She notes difficulty determining which specific treatment is effective due to multiple interventions. Family history includes a father diagnosed with colon cancer and several siblings with diverticulosis; two with colitis. - ADHD Management: Currently taking Adderall extended release 30 mg in the morning and Adderall 20 mg twice in the afternoon. No reported issues with the medication regimen. - Asthma and Smoking History: Has not used her inhaler in a long time. Quit smoking two years ago in January. 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 Experiences postnasal drip and uses Mucinex to alleviate morning cough. - Blood Pressure: Reports no issues with blood pressure despite taking Adderall. - Mammogram and Colonoscopy: Believes she had a mammogram last year but will call the hospital to confirm. Is due for a colonoscopy and plans to have it done as scheduled. Regularly undergoes colonoscopies due to family history. - Vitamin D and Thyroid: Vitamin D was low last year. Did not take replacement. Thyroid medication was discontinued as she did not notice any difference. Previous labs showed a slightly high thyroid level but normal overall thyroid function. Recent labs from the ER in July showed no alarming findings, except slightly elevated white blood cells due to an infection. - Anxiety and [place] Syndrome: Previously on lorazepam, successfully discontinued with the help of Missy Kay. Experiences anxiety mainly in the evening, diagnosed as sunset syndrome, and occasionally uses gummies for symptom relief. - Alcohol Consumption: Consumes alcohol socially, typically on weekends. Recently visited a winery and had a few drinks but generally drinks in moderation. - Eye and Dental Care: Overdue for a dental appointment. sees eye doc. * ROS: S ee HPI. Other systems reviewed and noncontributory except for as noted above. * Medical History: A nxiety & Depression, Asthma w/ URIs, ADD, Diverticulosis, Smoking quit date: 02/13/23!. * Surgical History: t wo C sections 1986 and 1988, partial histarectomy 2007, Right hand/ tendons 1991, carpel tunnel 2014, disk removed from neck 2014, Breast implants . * Hospitalization/Major Diagno stic Procedure: L oss of vision in left eye 2009, [facility] ER- blood in stool 08/08/23. * Family History: F ather: , diagnosed with Cancer. M other: . S iblings: alive. Emilia fernandez: alive. 5 brother(s) , 2 sister(s) . 2 son(s) . . Father has colon cancer Mother had an enlarged heart and of congestive heart failure Brother has colitis, 2 brothers and 1 sister have divaticulitis Fam hx of anxiety: pt, 2 sons, siblings, 4 out of 8. * Social History: Dru blackmon: [employer]. lives with and 2 kids. Smoking Smart Form A re you a: f ormer smoker, H ow long has it been since you last smoked? 3 -6 months. A lcohol: 2 drinks/day M-F; 4 drinks/day weekend. Counseled - reduced, 1-2 per wknd day, sometimes less. Marital Status: . Children: 2. Occupation: [employer] Lutheran: none. Exercise: not much, pt likes to walk. Caffeine: 1 cup of coffee a day. Pets: Dogs: 2. 10-12 cigarettes per day - quit around 2022. * Medications: T aking ProAir Digihaler 108 (90 Base) MCG/ACT Aerosol Powder Breath Activated 2 puff(s) inhaled 4 times a day PRN , Notes to Pharmacist: PRN, Taking Adderall 20 MG Tablet 2 tabs orally once a day in PM , Notes to Pharmacist: AFTERNOON. please allow substitution, DX: ADHD, Taking Adderall XR 30 MG Capsule Extended Release 24 Hour 1 cap(s) orally once a day (in the morning) , Notes to Pharmacist: MORNING. DX: ADHD; PLEASE ALLOW SUBSTITUTION, Discontinued Glucosamine 500 MG Capsule 1 capsule with meals Orally Three times a day , Medication List reviewed and reconciled with the patient * Allergies: N .K.D.A. Objective: * Vitals: I nitials:db, Wt: 168.6 lbs, Temp: 97.4 F, Temp Route: T, HR: 90, PulseOx: 98, BP: 122/80, ADHD/ADD: 23, PHQ-9: 4. * Physical Examination: G ENERAL: General Appearence: w ell-appearing, alert and oriented.? S KIN: Moles: b enign appearing. L YMPH NODES: Cervical: n one. A xillary: n one. E YES: Conjunctiva: n o conjunctival injections. LOUIE, EOMI bilaterally. H EENT: Head: n ormocephalic. T ympanic membrane(s): c lear and flat bilaterally. M outh: m oist mucus membranes, no lesions. . N TRENT: General: s upple. T hyroid: N ot enlarged. C ervical lymph nodes: n ormal. M uscles: n ormal. C arotid bruit: n one bilaterally. J VD: n one. B REASTS: General: n o masses, tenderness, skin changes, or nipple abnormality. A xilla: n o lymphadenopathy. C HEST: Shape and expansion: n ormal. H EART: PMI: n ormal. R hythm: r egular. M urmurs: n o. H eart sounds: n ormal. C licks: n o. L UNGS: General: n o wheezes or rales. good airflow throughout.? A BDOMEN: General: s oft, no masses or hepatosplenomegaly, nontender, NABS. B ACK: Spine: n ormal. G ENITOURINARY - FEMALE: General: e xternal genitalia without lesions. moist mucosa, cervix without lesions or discharge. no adnexal masses or tenderness. no cervical motion tenderness.. E XTREMITIES: Edema: n o. C yanosis: n o. C lubbing: n o.?Tremors: n o. P ulses: 2 + bilateral. M USCULOSKELETAL: General: n ormal strength and ROM noted.. N EUROLOGICAL: Sensory: N ormal. M otor: N ormal. C oordination: N ormal. R eflexes: 2 +. B abinski: N egative. G ait: N ormal. Assessment: * Assessment: 1. A dult physical NORMAL - Z00.00 (Primary) 2 . E ncounter for screening for malignant neoplasm of cervix - Z12.4 3 . H yperlipidemia, unspecified - E78.5? 4. A sthma unspecified, uncomplicated - J45.909 5 . N icotine dependence, cigarettes, in remission - F17.211 6 . F atty (change of) liver, not elsewhere classified - K76.0 7 . F atigue - R53.83 8 . H ypothyroidism - E03.9 9 . V itamin D deficiency, unspecified - E55.9 & #160; 1 0. A ttention-deficit hyperactivity disorder, unspecified type - F90.9 1 1. A nxiety (unspecified) - F41.9 1 2. A llergic rhinitis, unspecified - J30.9 1 3. H earing loss, Conductive, unilateral, right ear, with unrestricted hearing on the contralateral side - H90.11 1 4. C olitis NOS - K52.9 ?15. P AP SMEAR - Z01.419 Plan: * Treatment: 2. E ncounter for screening for malignant neoplasm of cervix Notes: Pap collected today. We reviewed screening criteria and explained that follow-up recommendations will be based on cytopathology report per ASCCP guidelines. 3. H yperlipidemia, unspecified L AB: LIPID PANEL Notes: Ordered labs for further evaluation and monitoring. 4. A sthma unspecified, uncomplicated Notes: Ordered labs for further evaluation and monitoring. Vitamin D once a week 5. N icotine dependence, cigarettes, in remission Notes:Encouragement for continued smoking cessation to reduce overall health risks. 6. F atty (change of) liver, not elsewhere classified L AB: COMP MET PANEL Notes: Currently stable, previous tests showed normal result Continue moderate alcohol consumption with awareness of potential health impacts. 7. F atigue L AB: COMP MET PANEL L AB: CBC AND DIFFERENTIAL 8. H ypothyroidism L AB: TSH with reflex L AB: COMP MET PANEL Notes: Currently stable 9. V itamin D deficiency, unspecified Start Vitamin D3 Capsule, 1.25 MG (40810 UT), 1 capsule, Orally, once a week, 70 days, 10, Refills 0. L AB: COMP MET PANEL L AB: Vitamin D Notes: Will order Vitamin D once a week Ordered labs for further evaluation and monitoring. Recheck vitamin D levels and thyroid function (TSH with reflex) to assess current status and guide treatment. CBC with differential will be ordered. 10. A ttention-deficit hyperactivity disorder, unspecified type Notes:Continue current Adderall regimen as it is well-tolerated without issues. 11. A nxiety (unspecified) Notes: Will order Vitamin D once a week Ordered labs for further evaluation and monitoring. 12. A llergic rhinitis, unspecified Notes:Continue managing allergy-induced asthma with Mucinex for postnasal drip. 13. C olitis NOS Notes:GI appointment scheduled for December 11. Continue using Metamucil gummies and probiotics as needed. 14. P AP SMEAR L AB: Pap IGP, Aptima HPV, rfx 16/18,45- (AMHERST 25+)) (Collection Date & Time - 11/12/2024) 15. O thers Notes: Health maintenance flow sheet reveiwed and updated * Procedures: H earing Screen: Completed O AE Refer R ear, OAE Pass L ear. ? * Procedure Codes: 9 6127 PHQ9 or ADHD scale * Preventive Medicine: Counseling: D iet . I njury prevention . E xercise . S exual practices . D omestic violence . S unscreen . H ealth d iscuss perimenopausal signs and symptoms. n o risk factors identified. * Follow Up: f /u 3m adhd HJF * Images: Billing Information: * Visit Code: 62207 Preventive Care Est Pt. Age 40-64. * Procedure Codes: 69472 PHQ9 or ADHD scale. Care Plan Details* * Sign off status: Completed true * Appointment Provider: Emilia Chávez NP Date: 11/12/2024 Generated for Shana fuentes/Bhavik/Ricardo on: 12/17/2024 02:22 PM EDT History and Physical Notes * Physical Examination Category Sub-Category Detail Notes Section Note s HEENT Head: normocephalic Tympanic membrane(s): clear and flat kwabena aterally Mouth: moist mucus membrane s, no lesions. NECK General: supple Thyroid: Not enlarged Cervical lymph nodes: normal Muscles: normal Carotid bruit: none bilaterally JVD: none EXTREMITIES Edema: no Cyanosis: no Clubbing: no Tremors: no Pulses: 2+ bilateral BACK Spine: normal CHEST Shape and expansion: normal HEART PMI: normal Rhythm: regular Murmurs: no Heart sounds: normal Clicks: no ABDOMEN General: soft, no masses or hepatospl enomegaly, nontender, NABS NEUROLOGICAL cranial nerves Sensory: Normal Motor: Normal Coordination: Normal Reflexes: 2+ Babinski: Negative Gait: Normal MUSCULOSKELETAL General: normal strength and ROM n oted. GENITOURINARY - FEMALE General: external genitalia without lesions. moist mucosa, cervix without lesions or discharge. no adnexal masses or tenderness. no cervical motion tenderness. SKIN Moles: benign appearing GENERAL General Appearence: well-appearing, alert and oriented LYMPH NODES Cervical: none Axillary: none LUNGS General: no wheezes or rales. good ai rflow throughout BREASTS General: no masses, tenderness, skin changes, or nipple abnormality Axilla: no lymphadenopathy EYES Conjunctiva: no conjunctival injections. LOUIE, EOMI bilaterally
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
--- OUTSIDE RECORDS SUMMARY | 2024-12-17 14:22 | XMS_ITS | Patient Health Record ---
[facility] Organization [facility] Address [address] [place] [address] Care Team Providers Care Sprinkler Irrigation Equipment Mechanic Name Role Phone Kellie Jacob Unavailable [phone] Reason For Referral No Information Medications Medication SIG (Take, Route, Fr equency, Duration) Notes Start Date End Date Status LORazepam Active Adderall Active Propranolol HCl Acti ve Problems No Known Problems Plan Of Treatment Pending Test Test Name Order Date , [id number]/INJECT, JOINT/BURSA 1 Insurance Providers Payer Name Payer Address Payer Phone Subscriber Number Group Number Insured Name Patient Relationship to Insured Coverage Start Date Coverage End Date [facility] [address] [place] [address] [id number] Emi Abbasi Self - patient is the insured Medical (General) History Medical History History ICD Code chicken pox asthma Anxiety disorder Surgical History Surgery Date(Month/Year) hand surgery tubal ligation partial hysterectomy 2009 section 1996, 1998 ovarian cyst removal
[2025-01-08 15:33] VITALS: BMI 29.9
--- NOTE | 2025-01-10 09:56 | HO.ANESPROP2 ---
[facility] Past Medical History Medical History History of colitis ADD (attention deficit disorder) Depression Anxiety Functional capacity: independent ambulation Patient : No Family History Family history of problems with anesthesia: No Surgical History Surgical History Hx of unilateral oophorectomy History of partial hysterectomy Hx of section Hx of cervical spine surgery (~2013) History of esophagogastroduodenoscopy (EGD) Hx of colonoscopy History of Problems with Anesthesia: No Social History Social History Household Members: Family Housing: House Do you presently have visiting nurse or other home services: No Alcohol intake: current Alcohol intake frequency: 0-2 drinks per day Alcohol type: other Patient Tobacco Use Status: Former Tobacco user Current occupational status: employed Meds Allergies Allergy/AdvReac Type Severity Reaction Status Date / Time No Known Allergies Allergy Unverified 08/08/24 11:55 Active Medications: Current Medications Lactated Ringer's (Lr) 1,000 mls @ 50 mls/hr IVCONT .Q20H MILIND Sodium Biphosphate/Sodium Phosphate (Sodium Phosphate,[place]-Dibasic 133 Ml Enema) 133 ml AL ONCE PRN PRN Reason: Poor Colonoscopy Prep Results Home Medications ?Medication ?Instructions ?Recorded ?Confirmed ?Last Taken ?Type cholecalciferol (vitamin D3) 50 50 mcg PO DAILY 01/08/25 01/08/25 Unknown History mcg (2,000 unit) capsule (Vitamin D3) dextroamphetamine-amphetamine 30 30 mg PO DAILY 01/08/25 01/08/25 Unknown History mg tablet (Adderall) Glucosamine 01/10/25 01/10/25 Unknown History Exam Height,Weight and Vital Signs: Height 5 ft 3 in Weight 76.566 kg Airway Mallampati Class: II TM Dist: >3cm Neck ROM: Full Heart: RRR Lungs: CTA Assessment and Plan Assessment Anesthesia Assessment: Anesthesia Plan Discussed and Chart Reviewed Final Anesthetic Review Family History of Problems with Anesthesia: No History of Problems with Anesthesia: No NPO: Yes ASA Class: II Final Preanesthetic Review: Meds/Allgs Chart Reviewed, Consent Obtained/Reviewed and Anes Risks/Benef Reviewed Patient Risk: Low Procedure Risk: Low Anesthetic Plan Anesthetic Plan: MAC: Disposition: Standard PACU
[2025-01-10 10:06] VITALS: BMI 28.7
[2025-01-10 10:17] VITALS: BP 117/66; PULSE 59; RESP 16; TEMP 36.4; O2SAT 94
[2025-01-10] MEDS: Lactated Ringers 1,000 ML 50 ML IVCONT (10:27)
[2025-01-10 12:02] VITALS: BP 84/45; PULSE 67; RESP 16; TEMP 36.1; O2SAT 94
[2025-01-10 12:07] VITALS: BP 89/49
--- NOTE | 2025-01-10 12:11 | PM.OP ---
Brief Operative Note Date of Service: 01/10/25 Pre-op diagnosis: Screening, diarrhea Post-op diagnosis: other (Colon polyps, R/O microscopic colitis) Procedure: Colonoscopy to the cecum and TI with biopsies and cold snare polypectomies at 20cm and 40cm Surgeon: Onesimo Ryan MD Anesthesia: MAC Was an Command And Control Systems Integrator used for this Procedure?: No Estimated blood loss (mL): 2.0 Pathology: other (A. Polyp at 40cm B Terminal ileum C. Ascending colon D. Descending colon E. Polyp at 20cm) Condition: stable Disposition: PACU
[2025-01-10 12:12] VITALS: BP 94/53
[2025-01-10 12:17] VITALS: BP 102/50; PULSE 60; RESP 17; O2SAT 99
[2025-01-10 12:32] VITALS: BP 122/71; PULSE 57; RESP 18; TEMP 36.1; O2SAT 98
--- NOTE | 2025-01-10 13:00 | HO.POSTANES ---
Post Anesthesia Evaluation Post Anesthesia Evaluation Date of Service: 01/10/25 Vital Signs: Vital Signs Temp Pulse Resp BP Pulse Ox O2 Del Method 01/10/25 12:32 97 F 57 18 122/71 98 Room Air 01/10/25 12:17 60 17 102/50 L 99 Room Air 01/10/25 12:12 94/53 L 01/10/25 12:07 89/49 L 01/10/25 12:02 96.9 F 67 16 84/45 L 94 Room Air 01/10/25 10:17 97.6 F 59 16 117/66 94 Room Air Anesthesia: Monitored Mental Status: Awake Pain Control: Satisfactory Nausea/Vomiting: None Hydration: Adequate Anesthesia-Related Issues: No Anes. Related Issues
--- NOTE | 2025-01-10 15:59 | OP_ITS ---
DATE OF SERVICE: 01/10/2025 SURGEON: Onesimo Ryan MD INDICATIONS: The patient presents for evaluation of colorectal cancer screening and diarrhea. Full consent was obtained from her for this, including risks of bleeding and perforation. PREOPERATIVE DIAGNOSIS: POSTOPERATIVE DIAGNOSIS: PROCEDURE PERFORMED: ESTIMATED BLOOD LOSS: COMPLICATIONS: ANESTHESIA: Medication used monitored anesthesia care. ASSISTANTS: SPECIMENS: PREOPERATIVE DIAGNOSES: Colorectal cancer screening and diarrhea. POSTOPERATIVE DIAGNOSES: Colorectal cancer screening, diarrhea, colon polyps, rule out microscopic colitis, diverticulosis, and internal hemorrhoids. PROCEDURES PERFORMED: Colonoscopy to the cecum with biopsies and cold snare polypectomies. DESCRIPTION OF PROCEDURE: The patient was placed in the left lateral decubitus position. Digital rectal exam revealed no abnormalities. The [employer] video pediatric colonoscope was entered into the rectum and advanced easily to the cecum. Once in the cecum, I did identify normal-appearing cecal pouch with appendiceal orifice and a normal-appearing ileocecal valve. The terminal ileum was cannulated and appeared normal. Biopsies were obtained from the ileum. The scope was withdrawn back into the colon. The entire cecum and ileocecal valve appeared normal. The scope was slowly withdrawn assessing all mucosal surfaces carefully. Preparation was excellent. I did not visualize any sign of colitis nor any angiodysplasia. I did obtain random biopsies in the ascending colon and descending colon to rule out microscopic colitis. At 40 cm, there was an approximately 5 or 6 mm polyp, which was removed with cold snare polypectomy. The polypectomy site appeared clean, without any sign of residual polyp nor bleeding. At 20 cm, there was an approximately 6 to 8 mm polyp, which was removed by cold snare polypectomy and recovered by suction. The polypectomy site appeared clean, without any sign of residual polyp nor bleeding. I did not visualize any other polyps. There was a mild amount of sigmoid diverticulosis. In the rectum, scope was retroflexed visualizing internal hemorrhoids, but no other pathology. The rectal mucosa appeared normal. The scope was straightened out and withdrawn from the patient. She tolerated the procedure well and was returned to the recovery area in stable condition. IMPRESSION: 1. Colon polyps. 2. Rule out microscopic colitis. 3. Diverticulosis. 4. Internal hemorrhoids. PLAN: Results of the pathology will be checked. I would recommend a repeat colonoscopy in 5 years for further screening given today's findings of polyps and her family history of colon cancer in her father in his 70s. She was advised not to use any aspirin and NSAIDs for 1 week. She was advised to try some Metamucil and Imodium on a regular basis to see if that could help with her diarrhea. She seems to have a component of some irritable bowel after her episode of presumed infectious colitis early this year. The colitis itself seems to have resolved. She will be seen in the Fall for a followup visit. MD NIRMALA Chaparro/MARYURI / [id number] MTDD
== END 2025-01-10 12:51 | disposition home or self-care (01) ==
PROVIDERS: PCP Family Medicine; Visit Provider Internal Medicine
PROC: 0DJD8ZZ Inspection of Lower Intestinal Tract, Via Natural or Artificial Opening Endoscopic (ICD-10-PCS; CPT 45378; principal; 2025-01-10 10:30)
DX: Z12.11 Encounter for screening for malignant neoplasm of colon (principal); D12.5 Benign neoplasm of sigmoid colon; K57.30 Diverticulosis of large intestine without perforation or abscess without bleeding; K64.8 Other hemorrhoids; Z80.0 Family history of malignant neoplasm of digestive organs; Z87.19 Personal history of other diseases of the digestive system; Z87.891 Personal history of nicotine dependence
CPT/HCPCS: 45385; 45380; 88305; J2003; J2704